=== PATIENT | female | born 1990 | race African-American/Black ===

== ENCOUNTER 2025-01-12 08:57 | Day surgery (SDC) | payer OTHER | END 2025-01-12 10:45 | disposition home or self-care (01) | LOC: FASU-ENDO 08:57 | PROVIDERS: ATTEND Internal Medicine Gastroenterology | PROC: 0DB68ZX Excision of Stomach, Via Natural or Artificial Opening Endoscopic, Diagnostic (ICD-10-PCS; 2025-01-12) | PROC: 0DB98ZX Excision of Duodenum, Via Natural or Artificial Opening Endoscopic, Diagnostic (ICD-10-PCS; principal; 2025-01-12 09:52) | DX: K29.50 Unspecified chronic gastritis without bleeding (principal); R11.0 Nausea; R14.0 Abdominal distension (gaseous) | CPT/HCPCS: 81025; 88305-TC ==

== ENCOUNTER 2025-01-26 08:46 | Day surgery (SDC) | payer OTHER | END 2025-01-26 10:22 | disposition home or self-care (01) | LOC: FASU-ENDO 08:46 | PROVIDERS: ATTEND Internal Medicine Gastroenterology | PROC: 0DBL8ZX Excision of Transverse Colon, Via Natural or Artificial Opening Endoscopic, Diagnostic (ICD-10-PCS; 2025-01-26) | PROC: 0DBN8ZX Excision of Sigmoid Colon, Via Natural or Artificial Opening Endoscopic, Diagnostic (ICD-10-PCS; 2025-01-26) | PROC: 0DBP8ZX Excision of Rectum, Via Natural or Artificial Opening Endoscopic, Diagnostic (ICD-10-PCS; 2025-01-26) | PROC: 0DBB8ZX Excision of Ileum, Via Natural or Artificial Opening Endoscopic, Diagnostic (ICD-10-PCS; 2025-01-26) | PROC: 0DBM8ZX Excision of Descending Colon, Via Natural or Artificial Opening Endoscopic, Diagnostic (ICD-10-PCS; 2025-01-26) | PROC: 0DBH8ZX Excision of Cecum, Via Natural or Artificial Opening Endoscopic, Diagnostic (ICD-10-PCS; 2025-01-26) | PROC: 0DBK8ZX Excision of Ascending Colon, Via Natural or Artificial Opening Endoscopic, Diagnostic (ICD-10-PCS; principal; 2025-01-26 09:26) | DX: K63.89 Other specified diseases of intestine (principal); K52.89 Other specified noninfective gastroenteritis and colitis; K64.8 Other hemorrhoids; R10.9 Unspecified abdominal pain; K59.00 Constipation, unspecified; R14.0 Abdominal distension (gaseous) | CPT/HCPCS: 81025; 88305-TC ==